=== PATIENT | female | born 1995 | race Caucasian/White ===

== ENCOUNTER 2016-12-25 15:33 | Emergency (ER) | payer OTHER ==
[~2016-12-25] VITALS: Ht 171.5 cm; Wt 77.3 kg
[~2016-12-25 15:33] MED LIST: ACET-1256 PO; BCPILLS PO; BIOT1CAP8 PO
[2016-12-25 15:37] VITALS: TEMP 36.9; Ht 171.5 cm; Wt 77.3 kg
[2016-12-25] MEDS ORDERED: MEDR150I IM (15:59)
[2016-12-25] MEDS ORDERED: MULT-240 PO (15:59)
--- NOTE | 2016-12-25 16:38 | EMERGENCY ROOM VISIT NOTE ---
History First contact with patient: 15:47 Chief Complaint: CHEST INJURY Stated Complaint: CHEST PAIN,FEVER History of Present Illness The patient is a 21 year old female who presents to the Emergency Room with complaints of pain in the center of her chest that has been going on for the last day. The patient was trying to hop up on a ledge. She put her hands up the ledge behind her, and jumped up when she felt a pop in her chest. She has had pain since. The pain is exacerbated with movement. She denies any shortness of breath. She denies any other injuries. She has not taken anything for pain. Review of Systems 10 system review performed and negative unless noted in HPI or below Past Medical/Surgical History Medical Problems: (1) No known problems Social History Smoking Status: Never Smoker Alcohol Use: occasionally Housing Status: lives with roommate Occupation Status: [employer] student Current/Historical Medications Scheduled Medroxyprogesterone Acetate (C (Depo-Provera Contraceptiv), 150 MG IM UD Multiple Vitamins W/ Minerals (Womens One Daily), 1 TAB PO DAILY Physical Exam Vital Signs Date Time Temp Pulse Resp B/P (MAP) Pulse Ox O2 Delivery O2 Flow Rate FiO2 12/25/16 15:37 36.9 94 16 157/89 99 Room Air Physical Exam VITALS: Vitals are noted on the nurse's note and reviewed by myself. Vital signs stable. GENERAL: 21-year-old female, in no acute distress, nondiaphoretic, well- developed well-nourished. SKIN: The skin was without rashes, erythema, edema, or bruising. HEAD: Normocephalic atraumatic. NECK: . Cervical spine is nontender. No JVD. HEART: Regular rate and rhythm without murmurs gallops or rubs. LUNGS: Clear to auscultation bilaterally without wheezes, rales or rhonchi. No accessory muscle use. THORAX: Tenderness to palpation over the superior and mid sternum. No crepitus. No tenderness over the rest of the thorax. No tenderness over the sternoclavicular joints bilaterally. MUSCULOSKELETAL: No muscle atrophy, erythema, or edema noted. Strength 5/5 throughout. NEURO: Patient was alert and oriented to person place and time. Normal sensation to touch. No focal neurological deficits. Medical Decision & Procedures ER Provider Diagnostic Interpretation: Sternum x-ray IMPRESSION: Transversely oriented lucency with cortical irregularity involving the distal third of the manubrium suggests acute nondisplaced fracture. Correlate with point tenderness. ED Course The patient was seen and examined Imaging was performed and reviewed The findings were discussed with the patient. She was understanding. Discharge instructions were reviewed, and she was discharged in good condition Medical Decision Differential diagnosis: Sternal fracture, contusion, sternoclavicular dislocation This patient is a 21-year-old female that presented to the emergency department with upper sternal pain. There was no blunt force. The patient was tender in the upper portion of the sternum. X-rays confirmed a nondisplaced fracture of the manubrium. The patient was told to apply ice for 20 minute intervals. Take Tylenol 1000 mg every 6 hours as needed for pain. Do not exceed 3000 mg in a 24-hour period. You may take Ultram 50 mg tablets 1 every 4 hours as needed for severe pain. No strenuous activity for approximately 4 weeks. Please follow-up with [facility] in 2 weeks for recheck. Please return to the emergency department for any new or worsening symptoms such as worsening pain or difficulty breathing. This chart was completed in part utilizing [employer] Speech Voice Recognition software. Attempts were made to minimize the grammatical errors, random word insertions, pronoun errors and incomplete sentences. Any formal questions or concerns about the content, text or information contained within the body of this dictation should be directly addressed to the provider for clarification. Medication Reconcilliation Current Medication List: was personally reviewed by sc Blood Pressure Screening Patient's blood pressure: Normal blood pressure Impression Primary Impression: Sternum fx Departure Information Dispostion Home / Self-Care Condition GOOD Prescriptions Tramadol (Ultram) 50 Mg Tab 1 TAB PO Q4H Y for Pain, #20 TAB For Initial Treatment Prov: Tara Avila PA-C 12/25/16 Referrals No Doctor, Assigned (PCP) Patient Instructions [facility] Additional Instructions apply ice for 20 minute intervals. Take Tylenol 1000 mg every 6 hours as needed for pain. Do not exceed 3000 mg in a 24-hour period. You may take Ultram 50 mg tablets 1 every 4 hours as needed for severe pain. No strenuous activity for approximately 4 weeks. Please follow-up with [facility] in 2 weeks for recheck. Please return to the emergency department for any new or worsening symptoms such as worsening pain or difficulty breathing. Work Instructions Additional Work Instructions: No strenous activity for 4 weeks
--- NOTE | 2016-12-25 16:51 | DIAGNOSTIC IMAGING REPORT ---
STERNUM MIN 2 VIEWS HISTORY: 21 years-old Female mid sternal pain acute midsternal pain COMPARISON: Chest radiograph 01/22/2015 TECHNIQUE: 3 views of the sternum. FINDINGS: There is transversely oriented lucency with cortical irregularity noted involving the distal third of the manubrium suggesting acute nondisplaced fracture. No additional acute fracture or dislocation identified. Imaged lung kamara appear clear. IMPRESSION: Transversely oriented lucency with cortical irregularity involving the distal third of the manubrium suggests acute nondisplaced fracture. Correlate with point tenderness. The above report was generated using voice recognition software. It may contain grammatical, syntax or spelling errors. Electronically signed by: Sim Desai M.D. 12/25/2016 4:49 PM Dictated Date/Time: 12/25/2016 4:47 PM
[2016-12-25] MEDS ORDERED: TRAM-10 PO (17:07)
[2016-12-25 17:25] VITALS: BP 127/82; PULSE 68; O2SAT 99
== END 2016-12-25 17:26 | disposition home or self-care (01) ==
LOC: C.EDB 15:36 → C.EDD 17:26
DX: S22.21XA Fracture of manubrium, initial encounter for closed fracture (principal); X58.XXXA Exposure to other specified factors, initial encounter; Y93.89 Activity, other specified; Y99.8 Other external cause status

== ENCOUNTER → 2017-01-06 | Outpatient (CLI) | payer OTHER ==
[~2017-01-06] MED LIST changes: -ACET-1256 PO; -BCPILLS PO; -BIOT1CAP8 PO; +MEDR150I IM; +MULT-240 PO; +TRAM-10 PO
--- NOTE | 2017-01-06 17:42 | DIAGNOSTIC IMAGING REPORT ---
CT OF THE CHEST WITHOUT IV CONTRAST CLINICAL HISTORY: BROKEN STERNUM. COMPARISON STUDY: Chest radiograph the fourth 2014 and sternum radiographs December 25, 2016. CT DOSE: 294.00 mGy.cm TECHNIQUE: Axial images of the chest were obtained without IV contrast. Images were reviewed in the axial, sagittal, and coronal planes. IV contrast was not administered for this examination. A dose lowering technique was utilized adhering to the principles of ALARA. FINDINGS: No pneumothorax or pleural effusion is present. Lungs are clear. There is no pulmonary contusion. No acute rib or thoracic spine fracture is noted. Note is made of a healing nondisplaced manubrial fracture which is unchanged in alignment since exam of December 25, 2016. No additional fractures within the bony thorax are identified. Anterior mediastinal soft tissue suggests residual thymus. Thoracic aorta is suboptimally assessed on this unenhanced exam but appears unremarkable. Upper abdomen is unremarkable. IMPRESSION: 1. No change in alignment of the healing acute to subacute manubrial fracture since radiographs of December 25, 2016. 2. No additional traumatic findings within the chest. Electronically signed by: Teja Ku M.D. 01/06/2017 5:40 PM Dictated Date/Time: 01/06/2017 5:31 PM
== END | disposition home or self-care (01) ==
LOC: C.CTS 16:19
PROVIDERS: ATTEND Physician Assistant Medical
DX: S22.21XA Fracture of manubrium, initial encounter for closed fracture (principal); X58.XXXA Exposure to other specified factors, initial encounter